=== PATIENT | female | born 1970 | race Caucasian/White ===

== ENCOUNTER 2018-03-15 18:55 | Inpatient (IN) | payer MEDICAID ==
[~2018-03-15] VITALS: Ht 160 cm; Wt 56.8 kg
[~2018-03-15 18:55] MED LIST: DOL10T; KLONOPIN
[2018-03-15] MEDS ORDERED: normal saline 1000ML IV soln IVB ONE (19:35)
[2018-03-15] MEDS ORDERED: ondansetron/PF 4mg/2ml inj IV ONE (19:35)
[2018-03-15 20:24] LABS: BASOPHILS % (AUTO) 0.3 % (0-1); EOSINOPHILS # (AUTO) 0.1 X10'3 (0-0.9); EOSINOPHILS % (AUTO) 2.6 % (0-6); HEMATOCRIT 31.7 % (35.0-45.0); HEMOGLOBIN 11.1 g/dl (12.0-16.0); LYMPHOCYTES # (AUTO) 0.1 X10'3 (1.1-4.8); LYMPHOCYTES % (AUTO) 2.3 % (21-51); MEAN CORPUSCULAR HEMOGLOBIN 39.9 PG (27.0-31.0); MEAN CORPUSCULAR HGB CONC 35.1 % (33.0-36.5); MEAN CORPUSCULAR VOLUME 113.7 FL (78-98); MONOCYTES # (AUTO) 0.4 X10'3 (0-0.9); NEUTROPHILS # (AUTO) 4.1 X10'3 (1.8-7.7); NEUTROPHILS % (AUTO) 86.8 % (42-75); PLATELET COUNT 134 X10'3 (140-440); RED BLOOD COUNT 2.79 X10'6 (4.20-5.60); WHITE BLOOD COUNT 4.7 X10'3 (4.5-11.0)
[2018-03-15 20:34] LABS: INR 1.2 INR; PROTHROMBIN TIME 12.5 SECONDS (9.0-12.0)
[2018-03-15 20:39] LABS: ALANINE AMINOTRANSFERASE 154 U/L (12-78); ALBUMIN 2.8 G/DL (3.4-5.0); ALKALINE PHOSPHATASE 145 IU/L (46-116); BILIRUBIN,TOTAL 21.6 MG/DL (0.1-1.0); BLOOD UREA NITROGEN 14 MG/DL (7-18); CALCIUM 8.7 MG/DL (8.5-10.1); ETHANOL < 0.010 GM/DL (0.0-0.010); LIPASE 567 U/L (73-393); TOTAL CARBON DIOXIDE 29.4 MMOL/L (24-32)
[2018-03-15 20:55] LABS: PLATELET ESTIMATE DECREASED
[2018-03-15 20:57] LABS: POLYCHROMASIA FEW; STOMATOCYTES 3+
[2018-03-15 21:00] LABS: ASPARTATE AMINO TRANSFERASE 360 U/L (10-37)
[2018-03-15 21:02] LABS: GLUCOSE 143 MG/DL (70-104)
[2018-03-15 21:03] LABS: ALBUMIN/GLOBULIN RATIO 0.8 (1.1-1.5); BUN/CREATININE RATIO 24.6 (6.6-38.0); CREATININE 0.57 MG/DL (0.40-0.90); SODIUM 136 MMOL/L (135-145); TOTAL PROTEIN 6.1 G/DL (6.4-8.2); eGFR > 90 ML/MIN
[2018-03-15 21:05] LABS: ACETAMINOPHEN < 2.0 UG/ML (10-30)
[2018-03-15 21:06] LABS: ANION GAP 17 (8-16); CHLORIDE 90 MMOL/L (99-107)
[2018-03-15 21:11] LABS: POTASSIUM 2.6 MMOL/L (3.5-5.1)
[2018-03-15 21:12] LABS: MAGNESIUM 0.9 MG/DL (1.5-2.4)
[2018-03-15] MEDS ORDERED: chlordiazePOXIDE 25mg capsule PO ONE (21:20)
[2018-03-15] MEDS ORDERED: magnesium 2GM in 50ml NS 50 ML IV ONE (21:20)
[2018-03-15 21:32] LABS: CLARITY,URINE SLIGHTLY CLOUDY (Clear); COLOR,URINE BROWN (Yellow); GLUCOSE, URINE 100 mg/dl (Neg); KETONES,URINE 15 mg/dl (Neg); LEUKOCYTE ESTERASE ,URINE TRACE (Neg); NITRITES, URINE POSITIVE (Neg); OCCULT BLOOD,URINE MODERATE (Neg); PH,URINE 7.5 (4.8-8.0); PROTEIN,URINE 30 mg/dl (Neg); UROBILINOGEN,URINE >=8.0 E.U/dL (0.2-1.0)
[2018-03-15 21:33] LABS: UA COLLECTION TYPE STRAIGHT CATH
[2018-03-15] MEDS: potassium 10mEq/100ml NS w/LIDOcaine (10mg/bag) IV SCH ×2 (21:33→23:17)
[2018-03-15 21:39] LABS: BACTERIA,URINE 4+ /HPF (Neg); SQUAMOUS EPITHELIAL CELL,UR MODERATE /LPF (FEW); TRICHOMONAS,URINE MOD /HPF (NEGATIVE)
[2018-03-15 21:41] LABS: MUCUS STRANDS MODERATE /LPF (Neg)
[2018-03-15] MEDS ORDERED: CefTRIAXone 2gm/D5W 50ml 50 ML IV ONE (22:10)
[2018-03-15] MEDS ORDERED: CefTRIAXone inj 2,000 MG in normal saline 100ml IV soln 50 ML IV ONE (22:15)
[2018-03-15] MEDS: normal saline 1000ml 1,000 ML IV SCH (22:38)
[2018-03-15] MEDS ORDERED: mag hydrox/Alum hydrox/simeth 30ml oral suspension PO PRN (22:40)
[2018-03-15] MEDS ORDERED: magnesium hydroxide 30ml (MOM) UD suspension PO PRN (22:40)
[2018-03-15] MEDS ORDERED: acetaminophen 325mg tablet PO PRN (22:40)
[2018-03-15] MEDS ORDERED: ondansetron/PF 4mg/2ml inj IV PRN (22:40)
[2018-03-15] MEDS ORDERED: HYDROcodone/acetaminophen 5mg/325mg tablet PO PRN (22:40)
[2018-03-15] MEDS ORDERED: thiamine inj. 100 MG in normal saline 100ml IV soln 100 ML IV ONE (22:40)
[2018-03-15] MEDS ORDERED: thiamine 100mg/ml 2ml inj. IV ONE (23:25)
[2018-03-16 00:15] VITALS: BP 128/87
[2018-03-16] MEDS: HYDROcodone/acetaminophen 10/325mg tab PO PRN ×4 (00:44→20:52)
[2018-03-16 06:00] LABS: BASOPHILS % (AUTO) 0.4 % (0-1); EOSINOPHILS # (AUTO) 0.1 X10'3 (0-0.9); EOSINOPHILS % (AUTO) 1.7 % (0-6); HEMATOCRIT 29.6 % (35.0-45.0); HEMOGLOBIN 10.5 g/dl (12.0-16.0); LYMPHOCYTES # (AUTO) 1.1 X10'3 (1.1-4.8); LYMPHOCYTES % (AUTO) 25.6 % (21-51); MEAN CORPUSCULAR HEMOGLOBIN 40.9 PG (27.0-31.0); MEAN CORPUSCULAR HGB CONC 35.3 % (33.0-36.5); MEAN CORPUSCULAR VOLUME 115.8 FL (78-98); MEAN PLATELET VOLUME 9.9 FL (7.4-10.4); MONOCYTES # (AUTO) 0.4 X10'3 (0-0.9); MONOCYTES % (AUTO) 9.4 % (2-12); NEUTROPHILS # (AUTO) 2.8 X10'3 (1.8-7.7); NEUTROPHILS % (AUTO) 62.9 % (42-75); PLATELET COUNT 134 X10'3 (140-440); RED BLOOD COUNT 2.56 X10'6 (4.20-5.60); RED CELL DISTRIBUTION WIDTH 15.7 % (11.5-14.5); WHITE BLOOD COUNT 4.4 X10'3 (4.5-11.0)
[2018-03-16 06:07] LABS: INR 1.2 INR; PROTHROMBIN TIME 11.9 SECONDS (9.0-12.0)
[2018-03-16 06:20] LABS: PLATELET ESTIMATE DECREASED; POLYCHROMASIA 1+
[2018-03-16 06:21] LABS: ANISOCYTOSIS 1+; STOMATOCYTES 3+
[2018-03-16 06:56] LABS: ALANINE AMINOTRANSFERASE 137 U/L (12-78); ALBUMIN 2.6 G/DL (3.4-5.0); ALKALINE PHOSPHATASE 129 IU/L (46-116); AMYLASE 47 U/L (25-115); BILIRUBIN,TOTAL 19.8 MG/DL (0.1-1.0); BLOOD UREA NITROGEN 11 MG/DL (7-18); CALCIUM 8.1 MG/DL (8.5-10.1); LIPASE 948 U/L (73-393); MAGNESIUM 1.8 MG/DL (1.5-2.4); TOTAL CARBON DIOXIDE 29.3 MMOL/L (24-32)
[2018-03-16 07:28] LABS: ALBUMIN/GLOBULIN RATIO 0.8 (1.1-1.5); ANION GAP 20 (8-16); BUN/CREATININE RATIO 15.5 (6.6-38.0); CHLORIDE 95 MMOL/L (99-107); CREATININE 0.71 MG/DL (0.40-0.90); GLUCOSE 109 MG/DL (70-104); SODIUM 144 MMOL/L (135-145); TOTAL PROTEIN 5.8 G/DL (6.4-8.2); eGFR 89 ML/MIN
[2018-03-16 07:30] LABS: ASPARTATE AMINO TRANSFERASE 290 U/L (10-37)
[2018-03-16 07:35] LABS: PHOSPHORUS 1.1 MG/DL (2.3-4.5); POTASSIUM 2.8 MMOL/L (3.5-5.1)
[2018-03-16] MEDS ORDERED: NO HOME MEDS (07:43)
[2018-03-16 08:00] VITALS: BP 112/78
[2018-03-16] MEDS ORDERED: folic acid inj. 2 MG, thiamine inj. 100 MG, MVI, adult No.4 with vit. K 10 ML in dextro... IV SCH ×4 (08:00)
[2018-03-16] MEDS ORDERED: enoxaparin 40mg/0.4ml syringe SQ SCH (08:00)
[2018-03-16] MEDS ORDERED: magnesium 4gm in 100ml NS 100 ML IV PRN (10:10)
[2018-03-16] MEDS ORDERED: potassium Cl 40MEQ/NS 500ml 500 ML IV PRN ×2 (10:10)
[2018-03-16] MEDS ORDERED: magnesium 2GM in 50ml NS 50 ML IV PRN (10:10)
[2018-03-16] MEDS ORDERED: potassium Cl 20 mEq SR tablet PO PRN (10:10)
[2018-03-16] MEDS ORDERED: potassium phosphate inj 30 MMOL in normal saline 500ml IV soln 490 ML IV ONE (10:15)
[2018-03-16] MEDS: normal saline 1000ml 1,000 ML IV SCH (10:31)
[2018-03-16] MEDS: multivitamins, therapeutics tablet PO SCH (10:33)
[2018-03-16] MEDS: thiamine 100mg tablet PO SCH (10:33)
[2018-03-16] MEDS: folic acid 1mg tablet PO SCH (10:34)
[2018-03-16] MEDS: potassium Cl 20 mEq SR tablet PO PRN ×2 (10:36→19:48)
[2018-03-16 12:00] VITALS: BP 116/78
[2018-03-16] MEDS ORDERED: thiamine 100mg tablet PO SCH (12:35)
[2018-03-16] MEDS ORDERED: folic acid 1mg tablet PO SCH (12:35)
[2018-03-16] MEDS ORDERED: haloperidol lactate 5mg/ml inj IM PRN (12:35)
[2018-03-16] MEDS ORDERED: dextrose 50%-water 50ml dispensing syringe IV PRN (12:35)
[2018-03-16] MEDS ORDERED: dicyclomine 10 MG capsule PO PRN (12:35)
[2018-03-16] MEDS ORDERED: haloperidol 5mg tablet PO PRN (12:35)
[2018-03-16] MEDS ORDERED: sodium phosphate inj. 30 MMOL in dextrose 5%-water 250 ML IV PRN (12:40)
[2018-03-16] MEDS ORDERED: sodium phosphate inj. 15 MMOL in dextrose 5%-water 150 ML IV PRN (12:40)
[2018-03-16] MEDS ORDERED: Neutra Phos packet PO PRN (12:40)
[2018-03-16] MEDS: dextrose 5%-lactated ringers 1,000 ML IV SCH ×2 (13:39→22:45)
[2018-03-16] MEDS: CefTRIAXone/D5W-Rocephin 1gm 50 ML IV SCH (13:41)
[2018-03-16] MEDS: nicotine 21mg patch - 24 hr TD SCH (15:09)
[2018-03-16 15:15] LABS: HIV ANTIBODY 1&2 RAPID NON-REACTIVE (Neg)
[2018-03-16] MEDS: pantoprazole 40 MG vial IV SCH (15:41)
[2018-03-16] MEDS: lactulose 20gm/30ml cup PO SCH (19:47)
[2018-03-16 20:00] VITALS: BP 115/85
[2018-03-16 22:17] LABS: URINE AMPHETAMINE SCREEN NEGATIVE (Neg); URINE BARBITUATE SCREEN NEGATIVE (Neg); URINE BENZODIAZEPINES SCREEN POSITIVE (Neg); URINE CANNABINOID SCREEN POSITIVE (Neg); URINE COCAINE SCREEN NEGATIVE (Neg); URINE METHADONE SCREEN NEGATIVE (Neg); URINE OPIATE SCREEN POSITIVE (Neg); URINE PHENCYCLIDINE SCREEN NEGATIVE (Neg)
[2018-03-17] VITALS: BP 124/90
[2018-03-17] MEDS: LORazepam 2 mg/ml vial IV PRN ×6 (00:28→22:59)
[2018-03-17] MEDS: potassium Cl 20 mEq SR tablet PO PRN (01:09)
[2018-03-17 05:09] LABS: BASOPHILS % (AUTO) 0.3 % (0-1); EOSINOPHILS # (AUTO) 0.1 X10'3 (0-0.9); EOSINOPHILS % (AUTO) 2.2 % (0-6); LYMPHOCYTES # (AUTO) 1.2 X10'3 (1.1-4.8); LYMPHOCYTES % (AUTO) 24.8 % (21-51); MEAN CORPUSCULAR HEMOGLOBIN 40.7 PG (27.0-31.0); MEAN CORPUSCULAR HGB CONC 34.7 % (33.0-36.5); MEAN CORPUSCULAR VOLUME 117.1 FL (78-98); MONOCYTES # (AUTO) 0.5 X10'3 (0-0.9); MONOCYTES % (AUTO) 9.1 % (2-12); NEUTROPHILS # (AUTO) 3.2 X10'3 (1.8-7.7); NEUTROPHILS % (AUTO) 63.6 % (42-75); PLATELET COUNT 139 X10'3 (140-440); RED BLOOD COUNT 2.22 X10'6 (4.20-5.60); RED CELL DISTRIBUTION WIDTH 15.7 % (11.5-14.5)
[2018-03-17 05:19] LABS: INR 1.2 INR; PROTHROMBIN TIME 12.2 SECONDS (9.0-12.0)
[2018-03-17 05:22] LABS: ALANINE AMINOTRANSFERASE 112 U/L (12-78); ALBUMIN 2.4 G/DL (3.4-5.0); ALKALINE PHOSPHATASE 113 IU/L (46-116); ANION GAP 12 (8-16); BILIRUBIN,TOTAL 15.2 MG/DL (0.1-1.0); BLOOD UREA NITROGEN 9 MG/DL (7-18); CALCIUM 8.3 MG/DL (8.5-10.1); CHLORIDE 103 MMOL/L (99-107); LIPASE 333 U/L (73-393); MAGNESIUM 1.2 MG/DL (1.5-2.4); SODIUM 139 MMOL/L (135-145); TOTAL CARBON DIOXIDE 23.7 MMOL/L (24-32)
[2018-03-17 05:24] LABS: ALBUMIN/GLOBULIN RATIO 0.9 (1.1-1.5); POTASSIUM 3.7 MMOL/L (3.5-5.1); TOTAL PROTEIN 5.2 G/DL (6.4-8.2)
[2018-03-17] MEDS: HYDROcodone/acetaminophen 10/325mg tab PO PRN ×4 (05:34→19:13)
[2018-03-17 06:06] LABS: ASPARTATE AMINO TRANSFERASE 180 U/L (10-37)
[2018-03-17 06:08] LABS: CREATININE 0.53 MG/DL (0.40-0.90); GLUCOSE 87 MG/DL (70-104); PHOSPHORUS 2.6 MG/DL (2.3-4.5); eGFR > 90 ML/MIN
[2018-03-17 07:00] VITALS: BP 109/74
[2018-03-17] MEDS: folic acid 1mg tablet PO SCH (07:20)
[2018-03-17] MEDS: multivitamins, therapeutics tablet PO SCH (07:20)
[2018-03-17] MEDS: lactulose 20gm/30ml cup PO SCH ×4 (07:20→20:24)
[2018-03-17] MEDS: thiamine 100mg tablet PO SCH (07:21)
[2018-03-17] MEDS: pantoprazole 40 MG vial IV SCH (07:21)
[2018-03-17] MEDS: nicotine 21mg patch - 24 hr TD SCH (07:21)
[2018-03-17] MEDS: CefTRIAXone/D5W-Rocephin 1gm 50 ML IV SCH (07:21)
[2018-03-17] MEDS ORDERED: multivitamins, therapeutics tablet PO SCH (08:00)
[2018-03-17] MEDS: magnesium Cl slow-release 64mg tablet PO PRN (09:00)
[2018-03-17 11:00] VITALS: BP 108/73
[2018-03-17] MEDS: dextrose 5%-lactated ringers 1,000 ML IV SCH ×2 (11:15→18:45)
[2018-03-17] MEDS ORDERED: SINCALIDE IV ONE (12:00)
[2018-03-17] MEDS ORDERED: NORMAL SALINE IV ONE (12:00)
[2018-03-17] MEDS ORDERED: ketorolac trometh. 30mg/ml inj. IM ONE ×2 (13:10→13:15)
[2018-03-17 20:00] VITALS: BP 134/93
[2018-03-18] VITALS: BP 110/77
[2018-03-18] MEDS: dextrose 5%-lactated ringers 1,000 ML IV SCH ×2 (00:50→15:03)
[2018-03-18 05:27] LABS: HEMATOCRIT 28.4 % (35.0-45.0); HEMOGLOBIN 9.8 g/dl (12.0-16.0); MEAN CORPUSCULAR HEMOGLOBIN 40.7 PG (27.0-31.0); MEAN CORPUSCULAR HGB CONC 34.5 % (33.0-36.5); MEAN CORPUSCULAR VOLUME 117.9 FL (78-98); MEAN PLATELET VOLUME 8.6 FL (7.4-10.4); PLATELET COUNT 155 X10'3 (140-440); RED BLOOD COUNT 2.41 X10'6 (4.20-5.60); RED CELL DISTRIBUTION WIDTH 17.3 % (11.5-14.5); WHITE BLOOD COUNT 5.1 X10'3 (4.5-11.0)
[2018-03-18 05:31] LABS: INR 1.1 INR; PROTHROMBIN TIME 11.8 SECONDS (9.0-12.0)
[2018-03-18 05:55] LABS: % IRON SATURATION 68 % (11-46); IRON 97 UG/DL (49-151); TOTAL IRON BINDING CAPACITY 143 UG/DL (259-388)
[2018-03-18 06:01] LABS: ANISOCYTOSIS 1+; PLATELET ESTIMATE NORMAL; POLYCHROMASIA 1+; TOTAL CELLS COUNTED 100
[2018-03-18 06:44] LABS: ALANINE AMINOTRANSFERASE 113 U/L (12-78); ALBUMIN 2.6 G/DL (3.4-5.0); ALKALINE PHOSPHATASE 132 IU/L (46-116); ANION GAP 16 (8-16); ASPARTATE AMINO TRANSFERASE 146 U/L (10-37); BLOOD UREA NITROGEN 7 MG/DL (7-18); BUN/CREATININE RATIO 11.7 (6.6-38.0); CALCIUM 9.1 MG/DL (8.5-10.1); CHLORIDE 103 MMOL/L (99-107); GLUCOSE 112 MG/DL (70-104); LIPASE 142 U/L (73-393); MAGNESIUM 1.2 MG/DL (1.5-2.4); SODIUM 140 MMOL/L (135-145); TOTAL CARBON DIOXIDE 21.2 MMOL/L (24-32); eGFR > 90 ML/MIN
[2018-03-18 06:48] LABS: ALBUMIN/GLOBULIN RATIO 0.8 (1.1-1.5); FERRITIN 3582 NG/ML (8-252); PHOSPHORUS 2.7 MG/DL (2.3-4.5); POTASSIUM 3.9 MMOL/L (3.5-5.1); TOTAL PROTEIN 5.7 G/DL (6.4-8.2)
[2018-03-18] MEDS: pantoprazole 40 MG vial IV SCH (07:14)
[2018-03-18] MEDS: CefTRIAXone/D5W-Rocephin 1gm 50 ML IV SCH (07:14)
[2018-03-18] MEDS: nicotine 21mg patch - 24 hr TD SCH (07:14)
[2018-03-18] MEDS: folic acid 1mg tablet PO SCH (07:15)
[2018-03-18] MEDS: lactulose 20gm/30ml cup PO SCH ×3 (07:15→20:17)
[2018-03-18] MEDS: multivitamins, therapeutics tablet PO SCH (07:15)
[2018-03-18] MEDS: thiamine 100mg tablet PO SCH (07:19)
[2018-03-18] MEDS: LORazepam 2 mg/ml vial IV PRN ×5 (07:20→23:23)
[2018-03-18 07:34] VITALS: BP 121/89
[2018-03-18] MEDS ORDERED: SINCALIDE IV ONE (09:00)
[2018-03-18] MEDS ORDERED: NORMAL SALINE IV ONE (09:00)
[2018-03-18] MEDS ORDERED: LORazepam 1 MG tablet PO PRN (12:35)
[2018-03-18 12:43] VITALS: BP 129/91
[2018-03-18] MEDS: HYDROcodone/acetaminophen 10/325mg tab PO PRN ×2 (14:07→18:51)
[2018-03-18] MEDS: magnesium Cl slow-release 64mg tablet PO PRN (16:04)
[2018-03-18 19:00] VITALS: BP 107/73
[2018-03-18] MEDS: lactobacillus rhamnosus 10,000 MMU CELLS/CAPSULE PO SCH (20:16)
[2018-03-19] VITALS (9 sets, daily range): BP systolic 80–128; BP diastolic 49–93
[2018-03-19] MEDS: dextrose 5%-lactated ringers 1,000 ML IV SCH ×3 (01:05→15:54)
[2018-03-19 06:34] LABS: PROTHROMBIN TIME 10.8 SECONDS (9.0-12.0)
[2018-03-19] MEDS: pantoprazole 40mg Tablet.DR PO SCH (07:23)
[2018-03-19] MEDS: nicotine 21mg patch - 24 hr TD SCH (07:23)
[2018-03-19] MEDS: CefTRIAXone/D5W-Rocephin 1gm 50 ML IV SCH (07:23)
[2018-03-19] MEDS: multivitamins, therapeutics tablet PO SCH (07:24)
[2018-03-19] MEDS: folic acid 1mg tablet PO SCH (07:24)
[2018-03-19] MEDS: thiamine 100mg tablet PO SCH (07:25)
[2018-03-19] MEDS: LORazepam 2 mg/ml vial IV PRN ×4 (07:25→19:05)
[2018-03-19] MEDS: lactobacillus rhamnosus 10,000 MMU CELLS/CAPSULE PO SCH ×2 (07:25→20:00)
[2018-03-19] MEDS: lactulose 20gm/30ml cup PO SCH ×2 (07:29→20:00)
[2018-03-19 07:49] LABS: BASOPHILS % (AUTO) 0.6 % (0-1); EOSINOPHILS # (AUTO) 0.1 X10'3 (0-0.9); EOSINOPHILS % (AUTO) 1.6 % (0-6); HEMOGLOBIN 8.9 g/dl (12.0-16.0); MEAN CORPUSCULAR HEMOGLOBIN 40.7 PG (27.0-31.0); MEAN CORPUSCULAR HGB CONC 34.1 % (33.0-36.5); MEAN CORPUSCULAR VOLUME 119.5 FL (78-98); MEAN PLATELET VOLUME 8.8 FL (7.4-10.4); MONOCYTES # (AUTO) 0.5 X10'3 (0-0.9); MONOCYTES % (AUTO) 11.6 % (2-12); NEUTROPHILS # (AUTO) 3.1 X10'3 (1.8-7.7); NEUTROPHILS % (AUTO) 65.2 % (42-75); PLATELET COUNT 168 X10'3 (140-440); RED BLOOD COUNT 2.18 X10'6 (4.20-5.60); RED CELL DISTRIBUTION WIDTH 17.7 % (11.5-14.5); WHITE BLOOD COUNT 4.7 X10'3 (4.5-11.0)
[2018-03-19 08:29] LABS: ALANINE AMINOTRANSFERASE 97 U/L (12-78); ALBUMIN 2.4 G/DL (3.4-5.0); ALBUMIN/GLOBULIN RATIO 0.8 (1.1-1.5); ALKALINE PHOSPHATASE 130 IU/L (46-116); ANION GAP 14 (8-16); ASPARTATE AMINO TRANSFERASE 115 U/L (10-37); BLOOD UREA NITROGEN 4 MG/DL (7-18); BUN/CREATININE RATIO 7.8 (6.6-38.0); CALCIUM 8.1 MG/DL (8.5-10.1); CHLORIDE 103 MMOL/L (99-107); CREATININE 0.51 MG/DL (0.40-0.90); GLUCOSE 95 MG/DL (70-104); LIPASE 116 U/L (73-393); MAGNESIUM 2.7 MG/DL (1.5-2.4); PHOSPHORUS 2.7 MG/DL (2.3-4.5); POTASSIUM 3.4 MMOL/L (3.5-5.1); SODIUM 140 MMOL/L (135-145); TOTAL CARBON DIOXIDE 23.5 MMOL/L (24-32); TOTAL PROTEIN 5.6 G/DL (6.4-8.2); eGFR > 90 ML/MIN
[2018-03-19] MEDS: HYDROcodone/acetaminophen 10/325mg tab PO PRN ×2 (09:58→15:53)
[2018-03-19 13:29] LABS: HBSAG SCREEN Negative (Negative); HEP A AB, IGM Negative (Negative); HEP B CORE AB, IGM Negative (Negative); HEPATITIS C ANTIBODY <0.1 s/co ratio (0.0-0.9)
[2018-03-19] MEDS ORDERED: LIDOcaine Viscous 15ml cup PO ONE (18:25)
[2018-03-19] MEDS ORDERED: MIDAZolam 5mg/5ml vial IV PRN (18:25)
[2018-03-19] MEDS ORDERED: fentaNYL/PF 50MCG/1 ML 2ML syringe IV PRN (18:25)
[2018-03-19] MEDS ORDERED: simethicone 40mg/0.6ml oral drops 30ml MC ONE (18:25)
[2018-03-19] MEDS ORDERED: MIDAZolam 5mg/5ml vial ONE (19:34)
[2018-03-19] MEDS ORDERED: LIDOcaine Viscous 15ml cup ONE (19:34)
[2018-03-19] MEDS ORDERED: fentaNYL/PF 50MCG/1 ML 2ML syringe ONE (19:34)
[2018-03-20] MEDS: HYDROcodone/acetaminophen 10/325mg tab PO PRN ×5 (00:22→21:15)
[2018-03-20] MEDS: LORazepam 2 mg/ml vial IV PRN ×3 (00:28→05:38)
[2018-03-20 05:29] LABS: INR 1.1 INR; PROTHROMBIN TIME 11.7 SECONDS (9.0-12.0)
[2018-03-20 05:34] LABS: BASOPHILS % (AUTO) 0.7 % (0-1); EOSINOPHILS # (AUTO) 0.1 X10'3 (0-0.9); EOSINOPHILS % (AUTO) 1.8 % (0-6); HEMATOCRIT 25.8 % (35.0-45.0); HEMOGLOBIN 8.7 g/dl (12.0-16.0); LYMPHOCYTES # (AUTO) 0.8 X10'3 (1.1-4.8); LYMPHOCYTES % (AUTO) 21.1 % (21-51); MEAN CORPUSCULAR HEMOGLOBIN 40.2 PG (27.0-31.0); MEAN CORPUSCULAR HGB CONC 33.7 % (33.0-36.5); MEAN CORPUSCULAR VOLUME 119.3 FL (78-98); MONOCYTES # (AUTO) 0.5 X10'3 (0-0.9); MONOCYTES % (AUTO) 13.8 % (2-12); NEUTROPHILS # (AUTO) 2.4 X10'3 (1.8-7.7); NEUTROPHILS % (AUTO) 62.6 % (42-75); PLATELET COUNT 158 X10'3 (140-440); RED BLOOD COUNT 2.17 X10'6 (4.20-5.60); WHITE BLOOD COUNT 3.8 X10'3 (4.5-11.0)
[2018-03-20 05:43] LABS: ALANINE AMINOTRANSFERASE 79 U/L (12-78); ALKALINE PHOSPHATASE 122 IU/L (46-116); ANION GAP 13 (8-16); ASPARTATE AMINO TRANSFERASE 101 U/L (10-37); BILIRUBIN,TOTAL 12.1 MG/DL (0.1-1.0); BLOOD UREA NITROGEN 4 MG/DL (7-18); BUN/CREATININE RATIO 7.7 (6.6-38.0); CHLORIDE 107 MMOL/L (99-107); CREATININE 0.52 MG/DL (0.40-0.90); GLUCOSE 97 MG/DL (70-104); LIPASE 74 U/L (73-393); MAGNESIUM 1.8 MG/DL (1.5-2.4); SODIUM 142 MMOL/L (135-145); TOTAL CARBON DIOXIDE 22.2 MMOL/L (24-32); eGFR > 90 ML/MIN
[2018-03-20 05:44] LABS: ALBUMIN/GLOBULIN RATIO 0.7 (1.1-1.5); PHOSPHORUS 3.1 MG/DL (2.3-4.5); TOTAL PROTEIN 4.8 G/DL (6.4-8.2)
[2018-03-20 06:49] LABS: PLATELET ESTIMATE NORMAL
[2018-03-20 06:50] LABS: ANISOCYTOSIS 1+; STOMATOCYTES 3+
[2018-03-20 07:38] LABS: OCCULT BLOOD STOOL NEGATIVE (Neg)
[2018-03-20] MEDS: nicotine 21mg patch - 24 hr TD SCH (07:58)
[2018-03-20] MEDS: pantoprazole 40mg Tablet.DR PO SCH (07:58)
[2018-03-20] MEDS: CefTRIAXone/D5W-Rocephin 1gm 50 ML IV SCH (07:59)
[2018-03-20] MEDS: thiamine 100mg tablet PO SCH (07:59)
[2018-03-20] MEDS: lactobacillus rhamnosus 10,000 MMU CELLS/CAPSULE PO SCH ×2 (07:59→21:15)
[2018-03-20] MEDS: folic acid 1mg tablet PO SCH (07:59)
[2018-03-20] MEDS: multivitamins, therapeutics tablet PO SCH (07:59)
[2018-03-20] MEDS: lactulose 20gm/30ml cup PO SCH ×2 (07:59→21:13)
[2018-03-20 08:00] VITALS: BP 108/81
[2018-03-20] MEDS: dextrose 5%-lactated ringers 1,000 ML IV SCH ×2 (08:02→17:33)
[2018-03-20] MEDS ORDERED: magnesium 2GM in 50ml NS 50 ML IV PRN (09:10)
[2018-03-20] MEDS ORDERED: potassium Cl 40MEQ/NS 500ml 500 ML IV PRN ×2 (09:10)
[2018-03-20] MEDS ORDERED: magnesium 4gm in 100ml NS 100 ML IV PRN (09:10)
[2018-03-20] MEDS: LORazepam 1 MG tablet PO PRN ×3 (10:19→21:22)
[2018-03-20 11:00] VITALS: BP 123/84
[2018-03-20 12:28] VITALS: BP 113/77
[2018-03-20] MEDS ORDERED: LORazepam 2 mg/ml vial IV PRN (12:35)
[2018-03-20] MEDS: potassium Cl 20 mEq SR tablet PO PRN ×3 (13:19→21:22)
[2018-03-20 17:01] VITALS: BP 129/92
[2018-03-20 19:00] VITALS: BP 133/92
[2018-03-21] VITALS: BP 113/79
[2018-03-21] MEDS: dextrose 5%-lactated ringers 1,000 ML IV SCH ×3 (02:52→23:26)
[2018-03-21] MEDS: HYDROcodone/acetaminophen 10/325mg tab PO PRN ×6 (02:52→23:26)
[2018-03-21] MEDS: LORazepam 2 mg/ml vial IV PRN (03:03)
[2018-03-21 06:18] LABS: HEMATOCRIT 24.7 % (35.0-45.0); HEMOGLOBIN 8.4 g/dl (12.0-16.0); MEAN CORPUSCULAR HGB CONC 34.2 % (33.0-36.5); MEAN CORPUSCULAR VOLUME 117.1 FL (78-98); MEAN PLATELET VOLUME 9.8 FL (7.4-10.4); PLATELET COUNT 135 X10'3 (140-440); RED BLOOD COUNT 2.11 X10'6 (4.20-5.60); RED CELL DISTRIBUTION WIDTH 16.9 % (11.5-14.5); WHITE BLOOD COUNT 3.7 X10'3 (4.5-11.0)
[2018-03-21 06:36] LABS: ALANINE AMINOTRANSFERASE 70 U/L (12-78); ALBUMIN 1.9 G/DL (3.4-5.0); ALKALINE PHOSPHATASE 111 IU/L (46-116); ANION GAP 12 (8-16); BILIRUBIN,TOTAL 11.1 MG/DL (0.1-1.0); BLOOD UREA NITROGEN 3 MG/DL (7-18); CALCIUM 8.2 MG/DL (8.5-10.1); CHLORIDE 108 MMOL/L (99-107); CREATININE 0.43 MG/DL (0.40-0.90); GLUCOSE 93 MG/DL (70-104); MAGNESIUM 1.3 MG/DL (1.5-2.4); SODIUM 142 MMOL/L (135-145); TOTAL CARBON DIOXIDE 22.1 MMOL/L (24-32); eGFR > 90 ML/MIN
[2018-03-21 06:37] LABS: ALBUMIN/GLOBULIN RATIO 0.6 (1.1-1.5); ASPARTATE AMINO TRANSFERASE 97 U/L (10-37); PHOSPHORUS 2.5 MG/DL (2.3-4.5); POTASSIUM 4.3 MMOL/L (3.5-5.1); TOTAL PROTEIN 4.9 G/DL (6.4-8.2)
[2018-03-21 07:12] LABS: ANISOCYTOSIS 1+; BASOPHILS % (MANUAL) 1 % (0-1); EOSINOPHILS % (MANUAL) 1 % (0-6); LYMPHOCYTES % (MANUAL) 26 % (21-51); MONOCYTES % (MANUAL) 17 % (2-12); NEUTROPHILS % (MANUAL) 55 % (42-75); PLATELET ESTIMATE DECREASED; TOTAL CELLS COUNTED 100
[2018-03-21 07:13] LABS: STOMATOCYTES 2+; TOXIC GRANULATION 2+; TOXIC VACUOLATION 1+
[2018-03-21] MEDS: thiamine 100mg tablet PO SCH (07:50)
[2018-03-21] MEDS: lactulose 20gm/30ml cup PO SCH ×2 (07:51→19:09)
[2018-03-21] MEDS: magnesium Cl slow-release 64mg tablet PO PRN ×2 (07:53→19:08)
[2018-03-21] MEDS: pantoprazole 40mg Tablet.DR PO SCH (07:53)
[2018-03-21] MEDS: lactobacillus rhamnosus 10,000 MMU CELLS/CAPSULE PO SCH ×2 (07:53→19:08)
[2018-03-21] MEDS: folic acid 1mg tablet PO SCH (07:53)
[2018-03-21] MEDS: nicotine 21mg patch - 24 hr TD SCH (07:54)
[2018-03-21] MEDS: multivitamins, therapeutics tablet PO SCH (07:54)
[2018-03-21] MEDS: CefTRIAXone/D5W-Rocephin 1gm 50 ML IV SCH (07:54)
[2018-03-21 08:00] VITALS: BP 133/94
[2018-03-21 11:10] VITALS: BP 118/80
[2018-03-21] MEDS: LORazepam 1 MG tablet PO PRN ×4 (11:16→23:26)
[2018-03-21 12:31] VITALS: BP 121/91
[2018-03-21 18:00] VITALS: BP 113/82
[2018-03-22] VITALS: BP 113/76
[2018-03-22] MEDS: HYDROcodone/acetaminophen 10/325mg tab PO PRN ×5 (04:52→22:30)
[2018-03-22] MEDS: LORazepam 1 MG tablet PO PRN ×5 (04:52→22:29)
[2018-03-22 05:17] LABS: BASOPHILS # (AUTO) 0.1 X10'3 (0-0.2); BASOPHILS % (AUTO) 1.2 % (0-1); EOSINOPHILS # (AUTO) 0.1 X10'3 (0-0.9); EOSINOPHILS % (AUTO) 1.5 % (0-6); HEMATOCRIT 26.9 % (35.0-45.0); HEMOGLOBIN 9.1 g/dl (12.0-16.0); LYMPHOCYTES % (AUTO) 21.2 % (21-51); MEAN CORPUSCULAR HEMOGLOBIN 40.2 PG (27.0-31.0); MEAN CORPUSCULAR VOLUME 118.3 FL (78-98); MEAN PLATELET VOLUME 9.1 FL (7.4-10.4); MONOCYTES # (AUTO) 0.7 X10'3 (0-0.9); MONOCYTES % (AUTO) 14.6 % (2-12); NEUTROPHILS # (AUTO) 2.8 X10'3 (1.8-7.7); NEUTROPHILS % (AUTO) 61.5 % (42-75); PLATELET COUNT 172 X10'3 (140-440); RED BLOOD COUNT 2.27 X10'6 (4.20-5.60); RED CELL DISTRIBUTION WIDTH 16.3 % (11.5-14.5); WHITE BLOOD COUNT 4.6 X10'3 (4.5-11.0)
[2018-03-22 05:48] LABS: ALANINE AMINOTRANSFERASE 67 U/L (12-78); ALBUMIN 1.9 G/DL (3.4-5.0); ALKALINE PHOSPHATASE 116 IU/L (46-116); ANION GAP 10 (8-16); ASPARTATE AMINO TRANSFERASE 81 U/L (10-37); BILIRUBIN,TOTAL 11.6 MG/DL (0.1-1.0); BLOOD UREA NITROGEN 3 MG/DL (7-18); BUN/CREATININE RATIO 5.5 (6.6-38.0); CALCIUM 8.5 MG/DL (8.5-10.1); CHLORIDE 106 MMOL/L (99-107); CREATININE 0.55 MG/DL (0.40-0.90); GLUCOSE 89 MG/DL (70-104); MAGNESIUM 1.2 MG/DL (1.5-2.4); SODIUM 141 MMOL/L (135-145); TOTAL CARBON DIOXIDE 24.9 MMOL/L (24-32); eGFR > 90 ML/MIN
[2018-03-22 05:52] LABS: ALBUMIN/GLOBULIN RATIO 0.6 (1.1-1.5); PHOSPHORUS 3.6 MG/DL (2.3-4.5); POTASSIUM 3.5 MMOL/L (3.5-5.1); TOTAL PROTEIN 4.9 G/DL (6.4-8.2)
[2018-03-22 07:00] VITALS: BP 102/78
[2018-03-22 07:09] LABS: ANISOCYTOSIS 1+; PLATELET ESTIMATE NORMAL
[2018-03-22 07:10] LABS: POLYCHROMASIA 1+; STOMATOCYTES 1+; TARGET CELLS FEW
[2018-03-22] MEDS: lactulose 20gm/30ml cup PO SCH ×2 (08:21→20:01)
[2018-03-22] MEDS: multivitamins, therapeutics tablet PO SCH (08:22)
[2018-03-22] MEDS: thiamine 100mg tablet PO SCH (08:22)
[2018-03-22] MEDS: nicotine 21mg patch - 24 hr TD SCH (08:22)
[2018-03-22] MEDS: pantoprazole 40mg Tablet.DR PO SCH (08:22)
[2018-03-22] MEDS: lactobacillus rhamnosus 10,000 MMU CELLS/CAPSULE PO SCH ×2 (08:22→20:01)
[2018-03-22] MEDS: CefTRIAXone/D5W-Rocephin 1gm 50 ML IV SCH (08:22)
[2018-03-22] MEDS: folic acid 1mg tablet PO SCH (08:30)
[2018-03-22] MEDS: magnesium Cl slow-release 64mg tablet PO PRN ×2 (08:34→21:17)
[2018-03-22] MEDS: dextrose 5%-lactated ringers 1,000 ML IV SCH ×2 (09:11→20:06)
[2018-03-22 19:00] VITALS: BP 103/68
[2018-03-23] VITALS: BP 132/61
[2018-03-23] MEDS: HYDROcodone/acetaminophen 10/325mg tab PO PRN ×2 (04:40→10:37)
[2018-03-23] MEDS: LORazepam 1 MG tablet PO PRN ×3 (04:40→19:03)
[2018-03-23] MEDS: dextrose 5%-lactated ringers 1,000 ML IV SCH (05:10)
[2018-03-23 05:15] LABS: BASOPHILS % (AUTO) 0.7 % (0-1); EOSINOPHILS # (AUTO) 0.1 X10'3 (0-0.9); EOSINOPHILS % (AUTO) 1.5 % (0-6); HEMATOCRIT 26.4 % (35.0-45.0); HEMOGLOBIN 8.9 g/dl (12.0-16.0); LYMPHOCYTES # (AUTO) 0.9 X10'3 (1.1-4.8); LYMPHOCYTES % (AUTO) 19.3 % (21-51); MEAN CORPUSCULAR HEMOGLOBIN 39.5 PG (27.0-31.0); MEAN CORPUSCULAR HGB CONC 33.6 % (33.0-36.5); MEAN CORPUSCULAR VOLUME 117.6 FL (78-98); MEAN PLATELET VOLUME 9.5 FL (7.4-10.4); MONOCYTES # (AUTO) 0.8 X10'3 (0-0.9); MONOCYTES % (AUTO) 17.8 % (2-12); NEUTROPHILS # (AUTO) 2.8 X10'3 (1.8-7.7); NEUTROPHILS % (AUTO) 60.7 % (42-75); PLATELET COUNT 175 X10'3 (140-440); RED BLOOD COUNT 2.25 X10'6 (4.20-5.60); RED CELL DISTRIBUTION WIDTH 15.5 % (11.5-14.5); WHITE BLOOD COUNT 4.7 X10'3 (4.5-11.0)
[2018-03-23 05:47] LABS: ALANINE AMINOTRANSFERASE 58 U/L (12-78); ALBUMIN 1.8 G/DL (3.4-5.0); ALKALINE PHOSPHATASE 112 IU/L (46-116); ANION GAP 11 (8-16); ASPARTATE AMINO TRANSFERASE 79 U/L (10-37); BILIRUBIN,TOTAL 11.6 MG/DL (0.1-1.0); BLOOD UREA NITROGEN 4 MG/DL (7-18); BUN/CREATININE RATIO 7.4 (6.6-38.0); CALCIUM 7.9 MG/DL (8.5-10.1); CHLORIDE 107 MMOL/L (99-107); CREATININE 0.54 MG/DL (0.40-0.90); GLUCOSE 82 MG/DL (70-104); MAGNESIUM 1.2 MG/DL (1.5-2.4); SODIUM 142 MMOL/L (135-145); TOTAL CARBON DIOXIDE 24.5 MMOL/L (24-32); eGFR > 90 ML/MIN
[2018-03-23 05:50] LABS: ALBUMIN/GLOBULIN RATIO 0.6 (1.1-1.5); PHOSPHORUS 3.7 MG/DL (2.3-4.5); POTASSIUM 3.3 MMOL/L (3.5-5.1); TOTAL PROTEIN 4.8 G/DL (6.4-8.2)
[2018-03-23 06:53] LABS: ANISOCYTOSIS 1+; HYPOCHROMASIA 1+; PLATELET ESTIMATE NORMAL; POLYCHROMASIA 1+
[2018-03-23 06:55] LABS: STOMATOCYTES 3+
[2018-03-23 07:20] VITALS: BP 101/65
[2018-03-23] MEDS: lactulose 20gm/30ml cup PO SCH ×3 (08:00→20:00)
[2018-03-23] MEDS: pantoprazole 40mg Tablet.DR PO SCH (08:55)
[2018-03-23] MEDS: lactobacillus rhamnosus 10,000 MMU CELLS/CAPSULE PO SCH ×2 (08:56→20:03)
[2018-03-23] MEDS: folic acid 1mg tablet PO SCH (08:57)
[2018-03-23] MEDS: thiamine 100mg tablet PO SCH (08:57)
[2018-03-23] MEDS: multivitamins, therapeutics tablet PO SCH (08:57)
[2018-03-23] MEDS: magnesium Cl slow-release 64mg tablet PO PRN ×2 (08:57→20:46)
[2018-03-23] MEDS: potassium Cl 20 mEq SR tablet PO PRN (08:57)
[2018-03-23] MEDS: nicotine 21mg patch - 24 hr TD SCH (08:58)
[2018-03-23] MEDS: CefTRIAXone/D5W-Rocephin 1gm 50 ML IV SCH (08:58)
[2018-03-23] MEDS ORDERED: magnesium 4gm in 100ml NS 100 ML IV PRN (10:25)
[2018-03-23] MEDS ORDERED: potassium Cl 20 mEq SR tablet PO PRN ×2 (10:25)
[2018-03-23] MEDS ORDERED: potassium Cl 40MEQ/NS 500ml 500 ML IV PRN ×2 (10:25)
[2018-03-23] MEDS ORDERED: magnesium 2GM in 50ml NS 50 ML IV PRN (10:25)
[2018-03-23 11:00] VITALS: BP 105/76
[2018-03-23] MEDS ORDERED: potassium Cl 20 mEq SR tablet PO ONE (13:00)
[2018-03-23 19:00] VITALS: BP 96/63
[2018-03-24] VITALS: BP 96/56
[2018-03-24 05:22] LABS: BASOPHILS # (AUTO) 0.1 X10'3 (0-0.2); BASOPHILS % (AUTO) 1.9 % (0-1); EOSINOPHILS # (AUTO) 0.1 X10'3 (0-0.9); EOSINOPHILS % (AUTO) 2.1 % (0-6); HEMATOCRIT 26.9 % (35.0-45.0); HEMOGLOBIN 9.1 g/dl (12.0-16.0); MEAN CORPUSCULAR HEMOGLOBIN 39.6 PG (27.0-31.0); MEAN CORPUSCULAR HGB CONC 33.9 % (33.0-36.5); MEAN CORPUSCULAR VOLUME 116.9 FL (78-98); MEAN PLATELET VOLUME 9.8 FL (7.4-10.4); MONOCYTES # (AUTO) 0.7 X10'3 (0-0.9); MONOCYTES % (AUTO) 17.2 % (2-12); NEUTROPHILS # (AUTO) 2.4 X10'3 (1.8-7.7); NEUTROPHILS % (AUTO) 55.8 % (42-75); PLATELET COUNT 182 X10'3 (140-440); RED CELL DISTRIBUTION WIDTH 15.9 % (11.5-14.5); WHITE BLOOD COUNT 4.3 X10'3 (4.5-11.0)
[2018-03-24 05:43] LABS: ALANINE AMINOTRANSFERASE 53 U/L (12-78); ALKALINE PHOSPHATASE 126 IU/L (46-116); ANION GAP 11 (8-16); ASPARTATE AMINO TRANSFERASE 82 U/L (10-37); BILIRUBIN,TOTAL 12.9 MG/DL (0.1-1.0); BLOOD UREA NITROGEN 6 MG/DL (7-18); CALCIUM 8.6 MG/DL (8.5-10.1); CHLORIDE 106 MMOL/L (99-107); CREATININE 0.43 MG/DL (0.40-0.90); GLUCOSE 72 MG/DL (70-104); MAGNESIUM 1.4 MG/DL (1.5-2.4); SODIUM 141 MMOL/L (135-145); TOTAL CARBON DIOXIDE 24.1 MMOL/L (24-32); eGFR > 90 ML/MIN
[2018-03-24 05:46] LABS: ALBUMIN/GLOBULIN RATIO 0.6 (1.1-1.5); PHOSPHORUS 3.6 MG/DL (2.3-4.5); POTASSIUM 3.7 MMOL/L (3.5-5.1); TOTAL PROTEIN 5.2 G/DL (6.4-8.2)
[2018-03-24 07:08] LABS: ANISOCYTOSIS 1+; HYPOCHROMASIA 1+; PLATELET ESTIMATE NORMAL; POLYCHROMASIA 1+; STOMATOCYTES 3+
[2018-03-24 07:10] VITALS: BP 109/76
[2018-03-24] MEDS ORDERED: levoFLOXACIN 500mg tablet PO ONE (08:20)
[2018-03-24] MEDS: LORazepam 1 MG tablet PO PRN (08:35)
[2018-03-24] MEDS: lactobacillus rhamnosus 10,000 MMU CELLS/CAPSULE PO SCH (08:35)
[2018-03-24] MEDS: multivitamins, therapeutics tablet PO SCH (08:36)
[2018-03-24] MEDS: thiamine 100mg tablet PO SCH (08:36)
[2018-03-24] MEDS: folic acid 1mg tablet PO SCH (08:36)
[2018-03-24] MEDS: pantoprazole 40mg Tablet.DR PO SCH (08:36)
[2018-03-24] MEDS: nicotine 21mg patch - 24 hr TD SCH (08:37)
[2018-03-24] MEDS: lactulose 20gm/30ml cup PO SCH (08:37)
[2018-03-24] MEDS: magnesium Cl slow-release 64mg tablet PO PRN (08:37)
[2018-03-24] MEDS ORDERED: LACT10SO7 PO (08:50)
[2018-03-24] MEDS ORDERED: THI100T PO (08:50)
[2018-03-24] MEDS ORDERED: OXYC-658 PO (08:50)
[2018-03-24] MEDS ORDERED: NICO-687 TOP (08:50)
[2018-03-24] MEDS ORDERED: OMEP40CA37 PO (08:50)
[2018-03-24 11:45] VITALS: BP 113/78
== END 2018-03-24 12:05 | disposition home or self-care (01) | DRG 282 ==
LOC: ER 18:55 → ED HOLD 22:38 → SUR 3N 03-16 00:15
PROVIDERS: ADMIT Internal Medicine; ATTEND Family Medicine
PROC: 0DB68ZX Excision of Stomach, Via Natural or Artificial Opening Endoscopic, Diagnostic (ICD-10-PCS; principal; 2018-03-19)
DX: K85.20 Alcohol induced acute pancreatitis without necrosis or infection (principal); D61.818 Other pancytopenia; E83.42 Hypomagnesemia; E83.39 Other disorders of phosphorus metabolism; K76.0 Fatty (change of) liver, not elsewhere classified; K70.10 Alcoholic hepatitis without ascites; K72.90 Hepatic failure, unspecified without coma; K86.0 Alcohol-induced chronic pancreatitis; F12.10 Cannabis abuse, uncomplicated; K44.9 Diaphragmatic hernia without obstruction or gangrene; K25.9 Gastric ulcer, unspecified as acute or chronic, without hemorrhage or perforation; F17.200 Nicotine dependence, unspecified, uncomplicated; N39.0 Urinary tract infection, site not specified; F10.230 Alcohol dependence with withdrawal, uncomplicated; E87.6 Hypokalemia; B96.20 Unspecified Escherichia coli [E. coli] as the cause of diseases classified elsewhere; Z88.0 Allergy status to penicillin; Z88.1 Allergy status to other antibiotic agents; Z91.040 Latex allergy status; Z85.3 Personal history of malignant neoplasm of breast; Z90.710 Acquired absence of both cervix and uterus; Z90.10 Acquired absence of unspecified breast and nipple; Z71.6 Tobacco abuse counseling
CPT/HCPCS: 36415; 43239; 74181; 76700; 78226; 80053; 80305; 80320; 80329; 81001; 82140; 82150; 82272; 82607; 82728; 82746; 82948; 83540; 83550; 83690; 83735; 84100; 85025; 85610; 86703; 86705; 86706; 86709; 86803; 87040; 87070; 87077; 87088; 87186; 87340; 93005; 96361; 96365; 96366; 96375; 97116; 97162; 97530; 99285; A4620; A6213; A6258; A9537; C1751; C9113; G0500; J0696; J1650; J1885; J2060; J2250; J2405; J2805; J3010; J3411; J3475; J3480; J3490; J7030; J7040; J7060; J7120